=== PATIENT | male | born 1950 | race Caucasian/White ===

== ENCOUNTER → 2018-06-11 | Outpatient (CLI) | payer BC, OTHER ==
[2018-06-11 16:24] LABS: BASO % 0.5 % (0.0-1.0); EOS # 0.1 10^3/uL (0.0-0.50); EOS % 1.5 % (0.0-3.0); HEMATOCRIT 36.3 % (42.0-52.0); HEMOGLOBIN 12.7 g/dl (13.5-17.5); IMMATURE GRANULOCYTE % 1.3 % (0-3.0); LYMPH # 0.7 10^3/uL (1.5-4.5); LYMPH % 8.4 % (24.0-44.0); MEAN CORPUSCULAR HEMOGLOBIN 31.1 pg (27.0-33.0); MONO # 0.7 10^3/uL (0.0-0.8); MONO % 8.8 % (0.0-5.0); NEUTROPHILS # 6.2 10^3/uL (1.8-7.7); NEUTROPHILS % 79.5 % (36.0-66.0); PLATELET COUNT, AUTOMATED 125 10^3/uL (150-450); RED BLOOD COUNT 4.08 10^6/uL (4.30-6.10); RED CELL DISTRIBUTION WIDTH 13.2 % (11.5-14.5); WHITE BLOOD COUNT 7.9 10^3/uL (4.0-10.0)
[2018-06-11 16:41] LABS: ALBUMIN 4.3 GM/DL (3.2-5.2); ALBUMIN/GLOBULIN RATIO 1.13 (1.00-1.93); ALKALINE PHOSPHATASE 58 U/L (45-117); ALT/SGPT 22 U/L (12-78); ANION GAP 8 MEQ/L (8-16); AST/SGOT 12 U/L (7-37); BILIRUBIN,TOTAL 0.7 MG/DL (0.2-1.0); BLOOD UREA NITROGEN 19 MG/DL (7-18); CARBON DIOXIDE LEVEL 24 MEQ/L (21-32); CHLORIDE LEVEL 99 MEQ/L (98-107); CREATININE FOR GFR 1.22 MG/DL (0.70-1.30); FREE T4 0.89 NG/DL (0.76-1.46); GLOMERULAR FILTRATION RATE > 60.0 (>42); GLUCOSE, FASTING 240 MG/DL (70-100); POTASSIUM SERUM 4.5 MEQ/L (3.5-5.1); SODIUM LEVEL 131 MEQ/L (136-145); TOTAL PROTEIN 8.1 GM/DL (6.4-8.2)
[2018-06-14 00:07] LABS: EBV VIRAL CAPSID AG IgM <36.0 U/mL (0.0-35.9)
[2018-06-14 00:07] LABS: EBV VIRAL CAPSID AG IgG >600.0 U/mL (0.0-17.9)
== END ==
LOC: M WUC 11:26
DX: R53.83 Other fatigue (principal); J20.9 Acute bronchitis, unspecified
CPT/HCPCS: 84443

== ENCOUNTER → 2018-06-11 | Outpatient (CLI) | payer BC | LOC: M RAD 14:32 | DX: R22.1 Localized swelling, mass and lump, neck (principal) | CPT/HCPCS: 76536 ==

== ENCOUNTER → 2020-06-25 | Outpatient (CLI) | payer BC ==
--- NOTE | 2020-06-26 03:11 | REP ---
INDICATION: COPD COMPARISON: 06/11/2018 TECHNIQUE: PA and lateral. FINDINGS: The mediastinum and cardiac silhouette are normal. The lung sanz demonstrate diffuse chronic interstitial changes without acute consolidation, effusion, or pneumothorax. The skeletal structures are intact and normal. IMPRESSION: Chronic interstitial changes consistent with the given history of COPD. No acute consolidation or effusion. <Electronically signed by Eitan Bloom > 06/26/20 [id number]
== END ==
LOC: M WUC 13:35
PROVIDERS: ATTEND Nurse Practitioner Family
DX: J44.1 Chronic obstructive pulmonary disease with (acute) exacerbation (principal)

== ENCOUNTER 2020-07-17 10:41 | Emergency (ER) | payer BC, OTHER ==
[~2020-07-17] VITALS: Ht 180.3 cm; Wt 103.1 kg
[2020-07-17 11:35] LABS: BASO % 0.6 % (0.0-1.0); EOS # 0.1 10^3/uL (0.0-0.5); EOS % 1.5 % (0.0-3.0); HEMATOCRIT 37.9 % (42.0-52.0); HEMOGLOBIN 12.7 g/dl (13.5-17.5); LYMPH # 0.9 10^3/uL (1.5-5.0); LYMPH % 18.3 % (24.0-44.0); MEAN CORPUSCULAR HEMOGLOBIN 29.5 pg (27.0-33.0); MEAN CORPUSCULAR HGB CONC 33.5 g/dl (32.0-36.5); MEAN CORPUSCULAR VOLUME 87.9 fl (80.0-96.0); MONO # 0.6 10^3/uL (0.0-0.8); MONO % 11.7 % (0.0-5.0); NEUTROPHILS # 3.1 10^3/uL (1.5-8.5); NEUTROPHILS % 66.4 % (36.0-66.0); RED BLOOD COUNT 4.31 10^6/uL (4.30-6.10); WHITE BLOOD COUNT 4.7 10^3/uL (4.0-10.0)
[2020-07-17] MEDS ORDERED: ISOVUE-370 76% 100ML VIAL As Ordered ONE (11:39)
[2020-07-17] MEDS ORDERED: LISI-538 PO (11:44)
[2020-07-17] MEDS ORDERED: ATEN25TA PO (11:44)
[2020-07-17] MEDS ORDERED: REFR0.5D8 OP (11:44)
[2020-07-17] MEDS ORDERED: SERT-141 PO (11:44)
[2020-07-17] MEDS ORDERED: METF-839 PO (11:44)
[2020-07-17] MEDS ORDERED: CLAR10CA3 PO (11:44)
[2020-07-17] MEDS ORDERED: GEMF600T5 PO (11:44)
[2020-07-17] MEDS ORDERED: OMEP40CA97 PO (11:44)
[2020-07-17] MEDS ORDERED: VITACAP8 PO (11:44)
[2020-07-17 11:51] LABS: PLATELET COUNT, AUTOMATED 97 10^3/uL (150-450)
--- NOTE | 2020-07-17 12:00 | REP ---
INDICATION: DYSPNEA/COUGH. COMPARISON: Comparison chest x-ray June 25, 2020.. TECHNIQUE: Sitting AP radiograph. FINDINGS: Monitoring electrodes are seen. Moderate cardiomegaly is observed unchanged. Interstitial markings are increased diffusely consistent with some degree of chronic fibrosis. This is unchanged. No focal infiltrate is appreciated. There is no evidence of pleural effusion. Pulmonary vasculature is cephalized. No bony abnormality is seen. IMPRESSION: Cardiomegaly and pulmonary vascular cephalization. No acute infiltrate. <Electronically signed by Grover Saez > 07/17/20 [id number]
[2020-07-17 12:07] LABS: ALBUMIN 3.9 GM/DL (3.2-5.2); ALT/SGPT 22 U/L (12-78); BILIRUBIN,DIRECT 0.1 MG/DL (0.0-0.2); BILIRUBIN,TOTAL 0.8 MG/DL (0.2-1.0); BLOOD UREA NITROGEN 11 MG/DL (7-18); CALCIUM LEVEL 8.3 MG/DL (8.8-10.2); CARBON DIOXIDE LEVEL 25 MEQ/L (21-32); CHLORIDE LEVEL 104 MEQ/L (98-107); CK-MB VALUE MASS 3.1 NG/ML (<3.6); CPK CREATINE PHOSPHOKINASE 102 U/L (39-308); GLOMERULAR FILTRATION RATE > 60.0 (>42); GLUCOSE, FASTING 130 MG/DL (70-100); MB/CK RELATIVE INDEX 3.04 (< OR =4); NT-PRO BNP 3234 PG/ML (<125); POTASSIUM SERUM 4.6 MEQ/L (3.5-5.1); SODIUM LEVEL 133 MEQ/L (136-145); TOTAL PROTEIN 7.9 GM/DL (6.4-8.2); TROPONIN I 0.13 NG/ML (< 0.10)
--- NOTE | 2020-07-17 12:15 | REP ---
INDICATION: dissection. COMPARISON: None. TECHNIQUE: Contrast dose: 75 ML of Isovue [address] technique: Helical scanning is acquired and overlapping 1.5 mm and contiguous 3 mm axial images are reformatted. In addition, maximum intensity projection and multiplanar re-formation images are generated in sagittal and coronal imaging projections. FINDINGS: There is good opacification in the pulmonary arterial tree. There is no evidence of vessel cut off or filling defect to suggest pulmonary embolus. Homogeneous opacity is seen in the thoracic aorta. There is no evidence of aneurysm or dissection. Lung window settings demonstrate an area of discoid atelectasis posteriorly in the right lower lobe. No infiltrate is appreciated. There is extensive vascular calcification in the aorta and its branches including the coronary arteries. No pulmonary mass or significant pulmonary nodule is appreciated. There is no evidence of hilar or mediastinal mass or adenopathy. No pleural or pericardial effusion is seen. In the upper abdomen, normal adrenal glands are noted. Clips are noted in the gallbladder fossa. Diverticulosis is seen in the visualized colonic loops. There is an abdominal aortic aneurysm visible at the bottom of the imaging field of view. This is not completely included. At the level of the lower most axial slice, the AP dimension of the abdominal aorta is 5.6 cm. This should be further evaluated. No bony abnormality is appreciated. IMPRESSION: No CT evidence of pulmonary embolus. An abdominal aortic aneurysm is seen at the bottom of the imaging field of view, incompletely evaluated and measuring at least 5.6 cm in greatest AP dimension. Abdominal aortic sonography recommended for further evaluation. Extensive vascular calcification including coronary artery calcification. <Electronically signed by Grover Saez > 07/17/20 [id number]
[2020-07-17 13:43] LABS: CK-MB VALUE MASS 2.9 NG/ML (<3.6); MB/CK RELATIVE INDEX 4.39 (< OR =4); TROPONIN I 0.16 NG/ML (< 0.10)
[2020-07-17] MEDS ORDERED: HEPARIN DRIP 25,000 UNITS in IV 1 EA IV SCH (14:27)
[2020-07-17] MEDS ORDERED: CLOPIDOGREL 300 MG TAB (PLAVIX) PO ONE (14:30)
[2020-07-17] MEDS ORDERED: ASPIRIN 81 MG CHEW TABLET PO ONE (14:30)
[2020-07-17] MEDS ORDERED: HEPARIN SOD (PORCINE) 5000UNITS/ML 1ML VIAL/SYRINGE IV ONE (14:30)
[2020-07-17] MEDS ORDERED: FUROSEMIDE 20MG/2ML VIAL (J1940) IV ONE (14:30)
[2020-07-17 17:01] VITALS: BP 166/83
--- NOTE | 2020-07-18 06:41 | ECGEPIP ---
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
== END 2020-07-17 17:07 | disposition short-term general hospital (02) ==
LOC: M ED 10:41
DX: I24.9 Acute ischemic heart disease, unspecified (principal); I11.0 Hypertensive heart disease with heart failure; I71.4 Abdominal aortic aneurysm, without rupture; R94.31 Abnormal electrocardiogram [ECG] [EKG]; J44.9 Chronic obstructive pulmonary disease, unspecified; E11.9 Type 2 diabetes mellitus without complications; F17.200 Nicotine dependence, unspecified, uncomplicated; Z88.1 Allergy status to other antibiotic agents; Z79.899 Other long term (current) drug therapy
CPT/HCPCS: 71045; 71275; 80047; 80048; 80076; 82550; 82553; 83880; 84484; 85025; 85049; 85055; 87631; 93005; 93041; 94760; 96365; 96366; 99285; J1644; J1940; Q9967

== ENCOUNTER → 2021-05-11 | Outpatient (CLI) | payer OTHER ==
[~2021-05-11] MED LIST: ATEN25TA PO; CLAR10CA3 PO; E-Z-PAQUE 96% w/w SUSP 176GM BTL As Ordered ONE; GEMF600T5 PO; LISI20TA33 PO; METF-839 PO; OMEP40CA4 PO; REFR0.5D8 OP; SERT-141 PO; VARIBAR NECTAR 40% w/v 240ML SUSP BTL As Ordered ONE; VARIBAR PUDDING 40% w/v 230ML TUBE As Ordered ONE; VITACAP8 PO
--- NOTE | 2021-05-11 17:43 | REP ---
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 COMPARISON: None. TECHNIQUE: The procedure was performed by Lesa Montoya, [facility], under the direct supervision of Dr. Dr. Saez. The procedure was performed with Malissa Taylor from speech pathology present. 5 ml aliquots of thin, pudding, mixed fruit, soft food, hard food and apple sauce consistency barium was administered. FINDINGS: Flash penetration was visualized with thin consistency barium. The detailed report of this examination will be provided by speech pathology. IMPRESSION: Flash penetration with thin consistency barium, a detailed report will be provided by speech pathology. 2.2 minutes of fluoroscopy time was utilized for this procedure. Some fluoroscopic images are performed with last image hold technology. These images require no additional radiation <Electronically signed by Lesa Montoya > 05/11/21 1627 <Electronically signed by Grover Saez > 05/11/21 [id number]
== END ==
LOC: M RAD 09:58
PROVIDERS: ATTEND Otolaryngology
DX: J38.01 Paralysis of vocal cords and larynx, unilateral (principal)

== ENCOUNTER → 2021-11-24 | Outpatient (CLI) | payer OTHER ==
[~2021-11-24] MED LIST changes: -E-Z-PAQUE 96% w/w SUSP 176GM BTL As Ordered ONE; -VARIBAR NECTAR 40% w/v 240ML SUSP BTL As Ordered ONE; -VARIBAR PUDDING 40% w/v 230ML TUBE As Ordered ONE
== END ==
LOC: M RAD 15:51
PROVIDERS: ATTEND Family Medicine
DX: M54.2 Cervicalgia (principal)

== ENCOUNTER → 2022-03-22 | Outpatient (CLI) | payer OTHER ==
[~2022-03-22] MED LIST changes: +ISOVUE-370 76% 100ML VIAL As Ordered ONE
[2022-03-22 13:40] LABS: BLOOD UREA NITROGEN 16 MG/DL (7-18); CREATININE FOR GFR 1.23 MG/DL (0.70-1.30); GLOMERULAR FILTRATION RATE > 60.0 (>42)
== END ==
LOC: M RAD 12:15
PROVIDERS: ATTEND Otolaryngology
DX: R91.8 Other nonspecific abnormal finding of lung field (principal); I65.21 Occlusion and stenosis of right carotid artery; M99.61 Osseous and subluxation stenosis of intervertebral foramina of cervical region
CPT/HCPCS: 36415; 70491; 82565; 84520; Q9967

== ENCOUNTER → 2023-02-22 | Outpatient (CLI) | payer MEDICARE, OTHER ==
[~2023-02-22] MED LIST changes: +AMLO10TA PO; +ASCO500C3 PO; +ATOR80TA59 PO; +D-101000 PO; +ECOT81TA5 PO; +ELIQ5TAB PO; +EZET10TA21 PO; +FOLI800C PO; +GLIM2TAB4 PO; +METO1TAB33 PO; +PROBCAP14 PO; +SPIR-10 PO; +TORS20TA2 PO; +VALS1TAB66 PO; +ZOLO100T PO
== END ==
LOC: M RAD 12:19
PROVIDERS: ATTEND Nurse Practitioner Family
DX: I71.40 Abdominal aortic aneurysm, without rupture, unspecified (principal)
CPT/HCPCS: 74177; Q9967

== ENCOUNTER 2023-02-27 08:29 | Day surgery (SDC) | payer MEDICARE, OTHER ==
[~2023-02-27] VITALS: Ht 180.3 cm; Wt 101.8 kg
[~2023-02-27 08:29] MED LIST changes: +BSS IRRIG/VANCO(10MG)/TOBRA(5MG)/EPINEPH(1:1000-0.5CC)500ML BAG-ORONLY IR ONE; +CEFUROXIME 1MG/0.1ML INTRACAMERAL INJ As Ordered ONE; +CYCLOPENTOLATE 1% OPHTH SOLN 2ML BTL OD SCH; -ISOVUE-370 76% 100ML VIAL As Ordered ONE; +LIDOCAINE 1% SDV 5ML VIAL As Ordered ONE; +LIDOCAINE 3.5 % 1ML OPHTH TOPICAL GEL OU ONE; +MIDAZOLAM INJ 2MG/2ML VIAL As Ordered ONE; +OFLOXACIN 0.3 % (OCUFLOX) OPTH SOL 5ML OD ONE; +PHENYLEPHRINE 10% OPHTH SOL 5ML OD PRN; +PHENYLEPHRINE 2.5% OPHTH SOL 2ML OD SCH; +TROPICAMIDE 1% OPHTH SOLN 15ML OD SCH; +fentaNYL 100 MCG/2 ML INJECTION As Ordered ONE
[2023-02-27 10:26] VITALS: BP 134/67; TEMP 97; O2SAT 95
== END 2023-02-27 10:50 | disposition home or self-care (01) ==
LOC: M SDC 08:29
PROVIDERS: ATTEND Ophthalmology
DX: H25.11 Age-related nuclear cataract, right eye (principal); E11.9 Type 2 diabetes mellitus without complications; I35.9 Nonrheumatic aortic valve disorder, unspecified; K21.9 Gastro-esophageal reflux disease without esophagitis; I10 Essential (primary) hypertension; I48.91 Unspecified atrial fibrillation; I25.10 Atherosclerotic heart disease of native coronary artery without angina pectoris; I73.9 Peripheral vascular disease, unspecified; E78.5 Hyperlipidemia, unspecified; Z79.01 Long term (current) use of anticoagulants; Z79.84 Long term (current) use of oral hypoglycemic drugs; Z79.899 Other long term (current) drug therapy; Z79.82 Long term (current) use of aspirin; G47.33 Obstructive sleep apnea (adult) (pediatric)
CPT/HCPCS: 66984; J0697; J2250; J3010; V2632

== ENCOUNTER → 2024-01-04 | Outpatient (CLI) | payer OTHER, MEDICARE ==
[~2024-01-04] MED LIST changes: -BSS IRRIG/VANCO(10MG)/TOBRA(5MG)/EPINEPH(1:1000-0.5CC)500ML BAG-ORONLY IR ONE; -CEFUROXIME 1MG/0.1ML INTRACAMERAL INJ As Ordered ONE; -CYCLOPENTOLATE 1% OPHTH SOLN 2ML BTL OD SCH; -LIDOCAINE 1% SDV 5ML VIAL As Ordered ONE; -LIDOCAINE 3.5 % 1ML OPHTH TOPICAL GEL OU ONE; -MIDAZOLAM INJ 2MG/2ML VIAL As Ordered ONE; -OFLOXACIN 0.3 % (OCUFLOX) OPTH SOL 5ML OD ONE; -PHENYLEPHRINE 10% OPHTH SOL 5ML OD PRN; -PHENYLEPHRINE 2.5% OPHTH SOL 2ML OD SCH; -TROPICAMIDE 1% OPHTH SOLN 15ML OD SCH; -fentaNYL 100 MCG/2 ML INJECTION As Ordered ONE
== END ==
LOC: M RAD 13:06
PROVIDERS: ATTEND Internal Medicine
DX: N18.30 Chronic kidney disease, stage 3 unspecified (principal)

== ENCOUNTER 2024-09-17 15:36 | Emergency (ER) | payer MEDICARE, OTHER ==
[2024-09-17 16:08] VITALS: BP 128/65
[2024-09-17] MEDS: methylPREDNISolone 125MG 2ML VIAL IV ONE (16:08)
[2024-09-17] MEDS: METOPROLOL SUCC (TopROL XL) 100MG *XL* TAB PO ONE (16:08)
[2024-09-17] MEDS: IPRATROPIUM 0.5MG/ALBUTEROL 2.5MG INH SOL UD 3ML (DUONEB) NEB ONE ×2 (16:10→19:11)
[2024-09-17] MEDS: ALBUTEROL SULFATE 2.5MG/0.5ML INH NEB SOLN NEB ONE (16:10)
[2024-09-17 16:27] LABS: VENOUS BASE EXCESS -9.5 (-2.0-2.0); VENOUS HCO3 17.7 MMOL/L (23.0-27.0); VENOUS O2 SATURATION 46.8 % (60.0-80.0); VENOUS PARTIAL PRESSURE CO2 44.2 mmHg (38.0-50.0); VENOUS PARTIAL PRESSURE O2 30.9 mmHg (30.0-50.0); VENOUS PH 7.221 UNITS (7.330-7.430); VENOUS TOTAL CO2 19.1 MMOL/L (24.0-28.0)
[2024-09-17 16:28] LABS: HEMATOCRIT 31.1 % (42.0-52.0); HEMOGLOBIN 9.8 g/dl (13.5-17.5); MEAN CORPUSCULAR HEMOGLOBIN 29.9 pg (27.0-33.0); MEAN CORPUSCULAR HGB CONC 31.5 g/dl (32.0-36.5); MEAN CORPUSCULAR VOLUME 94.8 fl (80.0-96.0); PLATELET COUNT, AUTOMATED 102 10^3/uL (150-450); RED BLOOD COUNT 3.28 10^6/uL (4.30-6.10); WHITE BLOOD COUNT 6.7 10^3/uL (4.0-10.0)
[2024-09-17 16:51] LABS: LYMPHOCYTES 8 % (16-44); METAMYELOCYTES 2 % (0-0); MONOCYTES 23 % (0-5); MYELOCYTES 2 % (0-0); NEUTROPHILS 61 % (28-66)
[2024-09-17 16:52] LABS: PLATELET ESTIMATE DECREASED (NORMAL)
[2024-09-17 17:06] LABS: ALBUMIN 3.4 G/DL (3.2-5.2); BILIRUBIN,DIRECT 0.2 MG/DL (<0.4); BILIRUBIN,TOTAL 0.4 MG/DL (0.3-1.2); CALCIUM LEVEL 8.6 MG/DL (8.3-10.6); CREATININE FOR GFR 1.48 MG/DL (0.70-1.30); GLOMERULAR FILTRATION RATE 49.2 (>42); MAGNESIUM LEVEL 1.3 MG/DL (1.8-2.4); POTASSIUM SERUM 4.3 MMOL/L (3.5-5.1); THYROID STIMULATING HORMONE 1.342 uIU/ML (0.55-4.78); THYROXINE (T4) 5.9 UG/DL (4.5-10.9)
[2024-09-17] MEDS ORDERED: ISOVUE-370 76% 100ML VIAL As Ordered ONE (17:31)
[2024-09-17] MEDS: MAG SULF 1GM/100ML (MAG RUN) 1 GM in IV 1 EA IV ONE ×2 (17:49→19:46)
[2024-09-17 17:54] LABS: ABG BASE EXCESS -8.6 (-2.0-2.0); ABG HCO3 15.9 MMOL/L (22.0-26.0); ABG O2 SATURATION 95.6 % (95.0-99.0); ABG PARTIAL PRESSURE CO2 29.5 mmHg (35.0-45.0); ABG PARTIAL PRESSURE O2 89.1 mmHg (75.0-100.0); ABG STANDARD HCO3 17.4 MMOL/L. (22.0-26.0); ABG TOTAL CO2 16.8 MMOL/L (23.0-31.0)
[2024-09-17 17:57] LABS: CK-MB VALUE MASS 2.8 NG/ML (<3.6)
[2024-09-17 17:58] LABS: MB/CK RELATIVE INDEX 2.69 (< OR =4)
[2024-09-17] MEDS: NS (Normal Saline) 0.9% 1,000 ML IV SCH (18:58)
[2024-09-17 19:08] LABS: CK-MB VALUE MASS 1.9 NG/ML (<3.6); MB/CK RELATIVE INDEX 2.15 (< OR =4)
[2024-09-17 19:36] LABS: CALCIUM LEVEL 8.4 MG/DL (8.3-10.6); CREATININE FOR GFR 1.45 MG/DL (0.70-1.30); GLOMERULAR FILTRATION RATE 50.4 (>42); POTASSIUM SERUM 4.6 MMOL/L (3.5-5.1)
[2024-09-17] MEDS: OSELTAMIVIR PHOSPHATE 75 MG CAP PO ONE (19:46)
[2024-09-17] MEDS: PIPERACILLIN/TAZOBACTAM SOD 3.375 GM in DEXTROSE 5% (D5W) ADV/MINI-BAG 50 ML IV ONE (19:46)
[2024-09-17 20:59] LABS: CALCIUM LEVEL 8.2 MG/DL (8.3-10.6); CREATININE FOR GFR 1.39 MG/DL (0.70-1.30); GLOMERULAR FILTRATION RATE 52.9 (>42); POTASSIUM SERUM 4.7 MMOL/L (3.5-5.1)
[2024-09-17 22:28] VITALS: BP 155/90; TEMP 97.7; O2SAT 98
== END 2024-09-17 22:44 | disposition short-term general hospital (02) ==
LOC: M ED 15:36
DX: T82.330A Leakage of aortic (bifurcation) graft (replacement), initial encounter (principal); J09.X2 Influenza due to identified novel influenza A virus with other respiratory manifestations; K57.30 Diverticulosis of large intestine without perforation or abscess without bleeding; R16.2 Hepatomegaly with splenomegaly, not elsewhere classified; J44.9 Chronic obstructive pulmonary disease, unspecified; I25.2 Old myocardial infarction; E11.9 Type 2 diabetes mellitus without complications; I10 Essential (primary) hypertension; E78.5 Hyperlipidemia, unspecified; K21.9 Gastro-esophageal reflux disease without esophagitis; G47.33 Obstructive sleep apnea (adult) (pediatric); F17.200 Nicotine dependence, unspecified, uncomplicated; Z88.1 Allergy status to other antibiotic agents; Z79.01 Long term (current) use of anticoagulants; Z79.82 Long term (current) use of aspirin; Z79.02 Long term (current) use of antithrombotics/antiplatelets; Z79.899 Other long term (current) drug therapy
CPT/HCPCS: 71045; 71275; 74174; 80048; 80076; 82550; 82553; 82803; 83605; 83735; 83880; 84436; 84443; 84484; 85025; 87040; 87486; 87581; 87633; 87798; 93005; 93041; 94640; 94760; 96365; 96366; 96367; 99285; J2543; J2919; J3475; Q9967

== ENCOUNTER → 2024-11-01 | Outpatient (CLI) | payer OTHER | LOC: M SOG 07:54 | PROVIDERS: ATTEND Physician Assistant | DX: M17.0 Bilateral primary osteoarthritis of knee (principal) ==

== ENCOUNTER 2025-06-16 13:17 | Emergency (ER) | payer OTHER ==
[~2025-06-16] VITALS: Ht 180.3 cm; Wt 90.7 kg
[~2025-06-16 13:17] MED LIST changes: +AMLO-751 PO; -AMLO10TA PO; -EZET10TA21 PO; +EZET10TA57 PO
[2025-06-16] MEDS ORDERED: FERR325T3 PO (14:52)
[2025-06-16] MEDS ORDERED: FAMO40TA3 PO (14:52)
[2025-06-16] MEDS ORDERED: CLOT15CR4 TOP (14:52)
[2025-06-16] MEDS ORDERED: VENTAER INH (14:52)
[2025-06-16] MEDS ORDERED: MUPI2OI TOP (14:52)
[2025-06-16] MEDS ORDERED: AZEL1SPR3 NARES (14:52)
[2025-06-16] MEDS ORDERED: SPIR1AER INH (14:52)
[2025-06-16] MEDS ORDERED: GENT0.1C2 TOP (14:52)
[2025-06-16] MEDS ORDERED: ALLO10TA PO (14:52)
[2025-06-16] MEDS ORDERED: DICL100G10 TOP (14:52)
[2025-06-16] MEDS ORDERED: FLUT1BLS5 INH (14:52)
[2025-06-16 15:33] LABS: BASO # 0.0 10^3/uL (0.0-0.2); BASO % 0.1 % (0.0-1.0); EOS # 0.0 10^3/uL (0.0-0.5); EOS % 0.1 % (0.0-3.0); LYMPH # 0.5 10^3/uL (1.5-5.0); LYMPH % 5.1 % (24.0-44.0); MONO % 41.6 % (2.0-8.0); NEUTROPHILS # 4.9 10^3/uL (1.5-8.5); NEUTROPHILS % 50.6 % (36.0-66.0)
[2025-06-16 15:36] LABS: MONO # 4.1 10^3/uL (0.0-0.8)
[2025-06-16 15:50] LABS: PLATELET COUNT, AUTOMATED 79 10^3/uL (150-450)
[2025-06-16 15:55] LABS: ALT/SGPT 46.0 U/L (7.0-40); AST/SGOT 68.0 U/L (<34); CALCIUM LEVEL 8.5 MG/DL (8.3-10.6); CARBON DIOXIDE LEVEL 21.0 MMOL/L (20-31); CHLORIDE LEVEL 106.0 MMOL/L (98-107); CREATININE FOR GFR 1.17 MG/DL (0.70-1.30); GLOMERULAR FILTRATION RATE 64.2 (>42); MAGNESIUM LEVEL 1.3 MG/DL (1.8-2.4); POTASSIUM SERUM 3.6 MMOL/L (3.5-5.1); SODIUM LEVEL 138.0 MMOL/L (136-145)
[2025-06-16 15:57] LABS: FREE T4 1.28 NG/DL (0.89-1.76)
[2025-06-16] MEDS ORDERED: ISOVUE-370 76% 100 ML VIAL As Ordered ONE (16:34)
[2025-06-16] MEDS: ONDANSETRON 4MG/2ML VIAL IV ONE (17:37)
[2025-06-16] MEDS: MAG SULF 1GM/100ML (MAG RUN) 1 GM in IV 1 EA IV SCH (17:38)
[2025-06-16] MEDS: MORPHINE 4 MG/ML 1 ML VIAL IV PRN (17:38)
[2025-06-16 18:07] LABS: CPK CREATINE PHOSPHOKINASE 102.0 U/L (46-171)
[2025-06-16 18:19] LABS: C REACTIVE PROTEIN QUANTITATIV 23.32 MG/DL (<1.0)
[2025-06-16] MEDS: MAG SULF 1GM/100ML (MAG RUN) 1 GM in IV 1 EA IV ONE (21:01)
[2025-06-16] MEDS: KETOROLAC 30 MG/ML 1 ML VIAL IV ONE (21:02)
[2025-06-16] MEDS ORDERED: HOME MED LIST COMPLETE! XX SCH (21:15)
[2025-06-16 22:29] LABS: APPEARANCE, URINE CLEAR (CLEAR); BACTERIA, URINE AUTO NEGATIVE (NEGATIVE); BILIRUBIN, URINE AUTO NEGATIVE (NEGATIVE); BLOOD, URINE BLOOD 2+ (NEGATIVE); GLUCOSE, URINE (UA) AUTO NEGATIVE (NEGATIVE); KETONE, URINE AUTO NEGATIVE (NEGATIVE); LEUKOCYTE ESTERASE, URINE AUTO NEGATIVE (NEGATIVE); MUCUS, URINE SMALL (NEGATIVE); NITRITE, URINE AUTO NEGATIVE (NEGATIVE); PROTEIN, URINE AUTO 2+ mg/dL (NEGATIVE); RBC, URINE AUTO 19 /HPF (0-3); SPECIFIC GRAVITY URINE AUTO 1.036 (1.002-1.035); SQUAMOUS EPITHELIAL CELL UR AU 0 /HPF (0-6); UROBILINOGEN, URINE AUTO 2.0 mg/dL (0.0-2.0); WBC, URINE AUTO 0 /HPF (0-3)
[2025-06-16] MEDS ORDERED: AZELASTINE 137 MCG NASAL SPY 30 ML PRN (22:30)
[2025-06-16] MEDS ORDERED: GLUCOSE 4 GM CHEW PO PRN (22:30)
[2025-06-16] MEDS ORDERED: ALBUTEROL 90 MCG/ACT 8 GM HFA INHALER INH PRN (22:30)
[2025-06-16] MEDS ORDERED: GLUCAGON INJ 1 MG VIAL SC PRN (22:30)
[2025-06-16] MEDS: VALSARTAN 80MG TAB PO SCH (22:43)
[2025-06-16] MEDS: METOPROLOL SUCC. 100 MG *XL* TAB PO SCH (22:44)
[2025-06-16] MEDS: FAMOTIDINE 20 MG TAB PO SCH (22:54)
[2025-06-16] MEDS: APIXABAN 5 MG TAB PO SCH (22:54)
[2025-06-17] MEDS: INSULIN LISPRO (NovoLOG) PER UNIT SC SCH (07:44)
[2025-06-17] MEDS: ADVAIR HFA 115/21 MCG INHALER INH SCH (08:00)
[2025-06-17] MEDS ORDERED: PERCOCET 5MG/325MG TAB PO PRN ×2 (08:00→15:00)
[2025-06-17] MEDS ORDERED: PILL CUTTER 1 EACH XX ONE (08:14)
[2025-06-17] MEDS: TORSEMIDE 20 MG TAB PO SCH (08:27)
[2025-06-17] MEDS: SPIRONOLACTONE 25 MG TAB PO SCH (08:27)
[2025-06-17] MEDS: ASPIRIN 81 MG ENTERIC TABLET PO SCH (08:27)
[2025-06-17] MEDS: SERTRALINE 100 MG TAB PO SCH (08:27)
[2025-06-17] MEDS: OMEPRAZOLE 20MG CAP PO SCH (08:27)
[2025-06-17] MEDS: MAGNESIUM OXIDE 400 MG TAB PO SCH (08:28)
[2025-06-17] MEDS: amLODIPine 10 MG TAB PO SCH (08:28)
[2025-06-17] MEDS: PERCOCET 5MG/325MG TAB PO PRN ×2 (08:28→21:12)
[2025-06-17] MEDS: GLIMEPIRIDE 2 MG TAB PO SCH (08:42)
[2025-06-17 08:56] LABS: MAGNESIUM LEVEL 2.2 MG/DL (1.8-2.4)
[2025-06-17 09:02] LABS: BASO # 0.0 10^3/uL (0.0-0.2); BASO % 0.0 % (0.0-1.0); EOS # 0.0 10^3/uL (0.0-0.5); EOS % 0.0 % (0.0-3.0); LYMPH # 0.6 10^3/uL (1.5-5.0); LYMPH % 7.9 % (24.0-44.0); MONO % 35.3 % (2.0-8.0); NEUTROPHILS # 4.3 10^3/uL (1.5-8.5); NEUTROPHILS % 54.3 % (36.0-66.0)
[2025-06-17 09:11] LABS: C REACTIVE PROTEIN QUANTITATIV 29.08 MG/DL (<1.0)
[2025-06-17 09:56] LABS: MONO # 2.8 10^3/uL (0.0-0.8)
[2025-06-17] MEDS ORDERED: PROHANCE 279.3MG/ML 5ML VIAL As Ordered ONE (18:12)
[2025-06-17] MEDS ORDERED: PROHANCE 279.3MG/ML 15ML VIAL As Ordered ONE (18:12)
[2025-06-17] MEDS: TIOTROPIUM BROM 2.5MCG/ACTUATION 4GM INH INH SCH (20:35)
[2025-06-17] MEDS: VANCOMYCIN HCL 2,000 MG, VIAL MATE ADAPTER 1 EACH in NS 500 ML IV ONE (21:04)
[2025-06-17] MEDS: cefTRIAXone SOD 2 GM in DEXTROSE 5% (D5W) ADV/MINI-BAG 50 ML IV SCH (23:41)
[2025-06-18 07:41] LABS: BASO # 0.0 10^3/uL (0.0-0.2); BASO % 0.2 % (0.0-1.0); EOS # 0.0 10^3/uL (0.0-0.5); EOS % 0.2 % (0.0-3.0); LYMPH # 0.3 10^3/uL (1.5-5.0); LYMPH % 8.2 % (24.0-44.0); MONO # 1.2 10^3/uL (0.0-0.8); MONO % 30.0 % (2.0-8.0); NEUTROPHILS # 2.5 10^3/uL (1.5-8.5); NEUTROPHILS % 59.2 % (36.0-66.0)
[2025-06-18 07:50] LABS: PLATELET COUNT, AUTOMATED 68 10^3/uL (150-450)
[2025-06-18] MEDS: DEXTROSE 50% 50 ML SYRINGE IV PRN (07:55)
[2025-06-18] MEDS ORDERED: DEXTROSE 50% 50 ML SYRINGE IV STA (07:55)
[2025-06-18] MEDS ORDERED: VANCOMYCIN HCL 750 MG, VIAL MATE ADAPTER 1 EACH in NS 250 ML IV SCH (08:00)
[2025-06-18] MEDS: D5W/0.9% SODIUM CHLORIDE 1,000 ML IV ONE (08:17)
[2025-06-18 08:40] VITALS: BP 131/53
[2025-06-18 08:47] LABS: CALCIUM LEVEL 8.2 MG/DL (8.3-10.6); CARBON DIOXIDE LEVEL 19.0 MMOL/L (20-31); CHLORIDE LEVEL 106.0 MMOL/L (98-107); CREATININE FOR GFR 1.92 MG/DL (0.70-1.30); GLOMERULAR FILTRATION RATE 35.4 (>42); MAGNESIUM LEVEL 2.0 MG/DL (1.8-2.4); POTASSIUM SERUM 3.8 MMOL/L (3.5-5.1); SODIUM LEVEL 138.0 MMOL/L (136-145)
[2025-06-18] MEDS ORDERED: NS (Normal Saline) 0.9% 1,000 ML IV SCH (11:15)
[2025-06-18] MEDS: D5W/0.9% SODIUM CHLORIDE 1,000 ML IV SCH (12:03)
[2025-06-18] MEDS: LIDOCAINE 1% MDV 20 ML VIAL SC STA (13:23)
[2025-06-18 14:32] LABS: CRYSTALS, BODY FLUID NONE SEEN (NONE SEEN)
[2025-06-18] MEDS: SODIUM BICARBONATE 100 MEQ in D5W 1,000 ML IV SCH (14:44)
[2025-06-18 15:07] LABS: ESTIMATED AVERAGE GLUCOSE 108.0 MG/DL (60-110)
[2025-06-18] MEDS: GLUCOSE 4 GM CHEW PO SCH (15:32)
[2025-06-18 15:33] LABS: SOURCE, BODY FLUID RT HIP; SOURCE, BODY FLUID CRYSTALS RIGHT HIP
[2025-06-18] MEDS ORDERED: CEFTAROLINE FOSAMIL 600 MG in DEXTROSE 5% (D5W) ADV/MINI-BAG 50 ML IV SCH (16:10)
[2025-06-18 17:29] LABS: CALCIUM LEVEL 7.4 MG/DL (8.3-10.6); CARBON DIOXIDE LEVEL 21.0 MMOL/L (20-31); CHLORIDE LEVEL 105.0 MMOL/L (98-107); CREATININE FOR GFR 1.7 MG/DL (0.70-1.30); GLOMERULAR FILTRATION RATE 41.0 (>42); POTASSIUM SERUM 3.9 MMOL/L (3.5-5.1); SODIUM LEVEL 136.0 MMOL/L (136-145)
[2025-06-18] MEDS: KCL 20MEQ IN D5/0.45NS 1000ML 1,000 ML IV STA (17:29)
[2025-06-18 18:45] VITALS: BP 135/85; TEMP 98; O2SAT 92
== END 2025-06-18 18:54 | disposition short-term general hospital (02) ==
LOC: M ED 13:17 → EDBD 13:17 → M ED 06-18 18:54
DX: M00.051 Staphylococcal arthritis, right hip (principal); R53.1 Weakness; E11.9 Type 2 diabetes mellitus without complications; M85.651 Other cyst of bone, right thigh; M16.0 Bilateral primary osteoarthritis of hip; M94.29 Chondromalacia, multiple sites; M25.451 Effusion, right hip; M25.452 Effusion, left hip; M51.26 Other intervertebral disc displacement, lumbar region; I25.2 Old myocardial infarction; I70.0 Atherosclerosis of aorta; K57.30 Diverticulosis of large intestine without perforation or abscess without bleeding; K59.00 Constipation, unspecified; I10 Essential (primary) hypertension; E78.5 Hyperlipidemia, unspecified; F17.200 Nicotine dependence, unspecified, uncomplicated; I48.91 Unspecified atrial fibrillation; Z86.79 Personal history of other diseases of the circulatory system; Z79.01 Long term (current) use of anticoagulants; Z88.8 Allergy status to other drugs, medicaments and biological substances; Z79.52 Long term (current) use of systemic steroids; Z79.4 Long term (current) use of insulin; Z79.899 Other long term (current) drug therapy; Z79.82 Long term (current) use of aspirin
CPT/HCPCS: 20611; 36415; 72110; 72148; 73502; 73723; 74177; 76857; 80048; 80076; 80202; 81001; 82550; 83036; 83735; 84439; 84443; 85025; 85049; 85055; 85652; 86140; 87040; 87070; 87075; 87205; 89051; 89060; 93005; 93041; 94640; 94760; 96365; 96366; 96375; 97116; 97161; 99291; 99292; A9576; J0696; J1815; J1885; J2405; J3374; J3475; Q9967